=== PATIENT | female | born 1995 | race Caucasian/White ===

== ENCOUNTER 2017-09-24 12:24 | Emergency (ER) | payer MEDICAID ==
[~2017-09-24] VITALS: Ht 165.1 cm; Wt 59.0 kg
[2017-09-24 12:51] VITALS: Ht 165.1 cm; Wt 59.0 kg
[2017-09-24 13:31] LABS: CALCIUM 9.2 mg/dL (8.5-10.1); CARBON DIOXIDE 30.7 mmol/L (21-32); CHLORIDE SERUM 104 mmol/L (98-107); CREATININE SERUM 0.8 mg/dL (0.6-1.0); GFR1 > 60 mL/min; GLUCOSE SERUM 96 mg/dL (74-106); POTASSIUM SERUM 3.4 mmol/L (3.5-5.1); SODIUM SERUM 140 mmol/L (136-145)
[2017-09-24 13:32] LABS: BASOPHIL % 0.3 % (0-2); PLATELET COUNT 247 x10^3mcL (130-400); RED CELL DISTRIBUTION WIDTH 12.8 % (11.5-14.5)
[2017-09-24 14:20] VITALS: BP 132/71
== END 2017-09-24 14:20 | disposition home or self-care (01) ==
LOC: ED 12:24
PROVIDERS: Emergency Medicine
DX: F45.8 Other somatoform disorders (principal); E87.6 Hypokalemia

== ENCOUNTER 2020-05-10 15:55 | Emergency (ER) | payer SELFPAY ==
[~2020-05-10] VITALS: Ht 165.1 cm; Wt 61.5 kg
[2020-05-10 19:37] VITALS: BP 140/89; Ht 165.1 cm; Wt 61.5 kg
[2020-05-10 22:15] LABS: AMPHETAMINE QUAL UR NONE DETECTED (See below)
== END 2020-05-10 23:01 | disposition home or self-care (01) ==
LOC: ED 15:55
PROVIDERS: Specialist
DX: F14.10 Cocaine abuse, uncomplicated (principal); R11.2 Nausea with vomiting, unspecified
CPT/HCPCS: Q0162